=== PATIENT | female | born 1965 | race Caucasian/White ===

== ENCOUNTER 2020-06-13 09:30 | Outpatient (CLI) | payer OTHER, SELFPAY | END 2020-06-13 09:31 | disposition home or self-care (01) | LOC: LAB 04-26 15:01 | PROVIDERS: Family Provider Nurse Practitioner Family; PCP Nurse Practitioner Family; Visit Provider Nurse Practitioner Family | DX: R10.9 Unspecified abdominal pain (principal); R10.12 Left upper quadrant pain; R10.32 Left lower quadrant pain; R10.819 Abdominal tenderness, unspecified site | CPT/HCPCS: 80053; 81000; 85025 ==

== ENCOUNTER 2021-05-06 22:46 | Observation (INO) | payer OTHER, SELFPAY ==
--- NOTE | 2021-05-06 22:48 | ECG_ITS ---
[facility] Test Date: 2021-05-06 Pat Name: Xin Roberts Department: Room: Gender: Female Examination Grader: : 1965 Requested By: Donato Sneed Order Number: [id number] Krystal MD: Alexandru Harden M.D. Measurements Intervals [place] Rate: 143 P: MT: QRS: 61 QRSD: 69 T: 53 QT: 289 QTc: 447 Interpretive Statements SUPRAVENTRICULAR TACHYCARDIA No previous ECG available for comparison Electronically Signed On 05-07-2021 9:00:10 CDT by Alexandru Harden M.D. [id number]
[2021-05-06 22:49] VITALS: BP 159/99; PULSE 143; RESP 14; TEMP 36.8; O2SAT 92; BMI 32.3
--- NOTE | 2021-05-06 22:54 | ED_ITS ---
Documented by User: URBAN Hussein 05/07/21 02:27 HPI - Arrhythmia/Palpitations General: Chief Complaint: Chest Pain Stated Complaint: HEADACHE/CHEST DISCOMFORT Time Seen by Provider: 05/06/21 22:54 History of Present Illness: 56-year-old female comes in today with headache and elevated heart rate. Patient has a history of SVT and takes 50 mg of metoprolol daily. Patient reports that had a busy day raising money for [facility] and she had just taken some livestock back but they had borrowed for their event. Patient then started having a headache. Patient appears nontoxic. Patient appears in mild pain. Patient reports some nausea but no significant chest discomfort. EMS did not treat with any medication and noted a elevated heart rate in the 130s to 140s on their monitor. MD complaint: rapid heart beat Onset (ago): hour(s) Arrhythmia history: SVT Associated symptoms: Reports nausea; Deny vomiting Review of Systems General: Reports: 10 or more systems reviewed and unremarkable except in HPI and below Const: Denies: fever(s) Card: Denies: chest pain Resp: Denies: dyspnea GI: Reports: nausea; Denies: vomiting or diarrhea : Denies: difficulty voiding Neuro: Reports: headache(s) PFS ED PFSH: Family History Father Hypertension Social History Smoking and tobacco status: never smoked Second hand smoke exposure: No Smoking risk assessment/counseling performed?: No Alcohol intake: never Desire information about alcohol rehabilitation?: No Counseling given: No Desire information about substance/drug rehabilitation?: No Counseling given: No Adopted: No Caregiver/support person: No Lives independently: Yes Household members: spouse Housing: House Marital status: Number of children: 3 Highest education level completed: Some College, No Degree service: No Current occupational status: unemployed History of recent travel: No Physical Exam Const: COMMON NORMALS: alert HENMT: COMMON NORMALS: normocephalic HEAD & SCALP: normocephalic MOUTH: Normal oral and palatal mucosa present THROAT: posterior oropharynx normal Neck/C-Spine: COMMON NORMALS: full ROM and supple Chest: COMMONS NORMALS: normal inspection of the chest Resp: COMMON NORMALS: normal respiratory effort and No use of accessory muscles Cardio: COMMON NORMALS: regular rhythm JUGULAR VENOUS DISTENTION: no JVD RATE: tachycardic RHYTHM: regular rhythm GI: COMMON NORMALS: Soft to palpation AUSCULTATION: Yes normoactive bowel sounds PALPATION: Yes Soft to palpation and No Tenderness to palpation present (GI) Extremity: COMMON NORMALS: no pedal edema Neuro: SENSORIUM/ORIENTATION: Yes alert Psych: COMMON NORMALS: cooperative Skin: COMMON NORMALS: no rashes or lesions noted GENERAL SKIN EXAM: no rashes or lesions noted Course ED course: 2349, patient's heart rate continues to be in the 130s to 140s without any significant change. Patient has been given 5 mg of metoprolol and 500 cc of saline with no improvement in heart rate. I reviewed this with Dr. Ivory he recommended may be a trial of diltiazem. I ordered 0.25 mg/kg of diltiazem and a one-time dose of 20 mg IV push. 0010, patient converted to a sinus rhythm with a regular rate in the 70s after administration of Cardizem. Laboratory values and CT were negative. We will monitor patient repeat troponin at the 2-hour kaitlin. Patient agreed to plan. 0200, troponin did show a bump from 32-64. EKG showed no ischemic changes. Reviewed this with Dr. Ivory he recommended we do shared decision making with the family. I reviewed this with patient she continues to have some mild chest discomfort but feels somewhat better. After this discussion I decided that we should go ahead and do a 6-hour troponin and then consider disposition after that. I discussed this again with Dr. Ivory who agreed to plan. Patient will be given some morphine 4 mg IV push and Zofran to help with her complaints of headache and chest discomfort. Vital Signs: Vital signs: Vital Signs Temperature 98.1 F 05/07/21 01:59 Pulse Rate 63 05/07/21 05:18 Respiratory Rate 16 05/07/21 05:18 Blood Pressure 107/59 05/07/21 05:18 Pulse Oximetry 92 05/07/21 05:18 MDM - Arrhythmia/Palpitations Medical Decision Making 56[facility] of [facility] pain, headache, and rapid heart rate. On exam patient had SVT with a rate of 150 on the EKG. Lungs are clear to auscultation. No edema was noted in the extremities. Differential diagnosis includes not limited to SVT, ACS, anxiety. Patient was converted with 20 mg of diltiazem. CBC and CMP were unremarkable. Magnesium and TSH were nor mal. Patient did have some elevation in her troponin. And will be monitored to the 6-hour kaitlin. Dr. Ivory is going to assume care of patient at 3:00 and monitor patient until repeat troponin. Lab Data : 05/06/21 23:10 05/06/21 23:10 Radiology Impressions Chest X-Ray 05/06/21 22:55 IMPRESSION: Mild cardiomegaly. Minimal atelectasis or scar in the left lung base. Other findings detailed above. Head CT 05/06/21:55 IMPRESSION: No acute findings. Slight chronic ischemic changes. Laboratory Results WBC 10.5 10^3/uL (4.0-10.0) H 05/06/21 23:10 RBC 5.00 10^6/uL (4.1-5.3) 05/06/21 23:10 Hgb 14.5 g/dL (11.5-15.3) 05/06/21 23:10 Hct 43.8 % (37.0-47.0) 05/06/21 23:10 MCV 87.6 fl (81-99) 05/06/21 23:10 MCH 29.0 pg (28.0-34.0) 05/06/21 23:10 MCHC 33.1 g/dL (30.0-36.0) 05/06/21 23:10 RDW 11.8 % (12.1-15.1) L 05/06/21 23:10 Plt Count 214 10^3/cmm (130-400) 05/06/21 23:10 MPV 10.1 fL (7.4-10.4) 05/06/21 23:10 Neut % (Auto) 56.2 % 05/06/21 23:10 Lymph % (Auto) 32.9 % 05/06/21 23:10 Pershing % (Auto) 9.3 % 05/06/21 23:10 Eos % (Auto) 0.8 % 05/06/21 23:10 Baso % (Auto) 0.5 % 05/06/21 23:10 Neut # (Auto) 5.91 10^3/uL (1.8-7.7) 05/06/21 23:10 Lymph # (Auto) 3.5 10^3/uL (0.8-4.8) 05/06/21 23:10 Pershing # (Auto) 1.0 10^3/uL (0.2-0.9) H 05/06/21 23:10 Eos # (Auto) 0.1 10^3/uL (0.0-0.8) 05/06/21 23:10 Baso # (Auto) 0.1 10^3/uL (0.0-0.1) 05/06/21 23:10 Nucleated RBC % (auto) 0 % 05/06/21 23:10 Nucleated RBCs # 0.0 /100WBC 05/06/21 23:10 Sodium 140 mmol/L (136-145) 05/06/21 23:10 Potassium 3.9 mmol/L (3.5-5.1) 05/06/21 23:10 Chloride 105 mmol/L (98-107) 05/06/21 23:10 Carbon Dioxide 21 mmol/L (22-29) L 05/06/21 23:10 Anion Gap 17.9 (5-19) 05/06/21 23:10 BUN 15 mg/dL (6-20) 05/06/21 23:10 Creatinine 0.6 mg/dL (0.5-0.9) 05/06/21 23:10 GFR Calculation 103.4 mL/min (90-130) 05/06/21 23:10 Glucose 119 mg/dL (65-115) H 05/06/21 23:10 Calculated Osmolality 292 mOsm/kg (285-295) 05/06/21 23:10 Calcium 9.1 mg/dL (8.5-10.5) 05/06/21 23:10 Magnesium 2.1 mg/dL (1.7-2.3) 05/06/21 23:10 Total Bilirubin 0.4 mg/dL (0.15-1.2) 05/06/21 23:10 AST 26 U/L (0-32) 05/06/21 23:10 ALT 29 U/L (0-33) 05/06/21 23:10 Alkaline Phosphatase 89 IU/L (35-105) 05/06/21 23:10 Troponin T Baseline 32 ng/L (0-10) H 05/06/21 23:10 Troponin T 120 Minute 63.75 ng/L (0-10) H 05/07/21 01:10 Delta Troponin T 31.75 ABS# (0-10) H* 05/07/21 01:10 Troponin T Hi Sens 6Hr 80.75 ng/L (0-10) H 05/07/21 05:10 Troponin T Hi Sens 6Hr Delta 48.75 ng/L (0-12) H* 05/07/21 05:10 Total Protein 7.4 g/dL (6.6-8.7) 05/06/21 23:10 Albumin 4.3 g/dL (3.5-5.2) 05/06/21 23:10 Globulin 3.1 g/dL (1.3-4.6) 05/06/21 23:10 TSH 1.22 uIU/mL (0.27-4.20) 05/06/21 23:10 Urine Color Yellow (Yellow) 05/06/21 23:25 Urine Appearance Clear (CLEAR) 05/06/21 23:25 Urine pH 7 (5-7) 05/06/21 23:25 Ur Specific [place] 1.010 (1.005-1.030) 05/06/21 23:25 Urine Protein Neg (Negative) 05/06/21 23:25 Urine Glucose (UA) Norm (Normal) 05/06/21 23:25 Urine Ketones 1+ (Negative) H 05/06/21 23:25 Urine Blood Neg (Negative) 05/06/21 23:25 Urine Nitrate Negative (Negative) 05/06/21 23:25 Urine Bilirubin Neg (Negative) 05/06/21 23:25 Urine Urobilinogen Norm mg/dL (Negative) 05/06/21 23:25 Ur Leukocyte Esterase Trace (Negative) H 05/06/21 23:25 Urine RBC 0-4 /hpf (0-2) H 05/06/21 23:25 Urine WBC 0-4 /hpf (0-5) H 05/06/21 23:25 Ur Squamous Epith Cells 5-10 /hpf (0-5) H 05/06/21 23:25 Amorphous Sediment Not Reportable 05/06/21 23:25 Urine Bacteria 1+ /hpf (NONE) H 05/06/21 23:25 Urine Mucus 2+ /hpf 05/06/21 23:25 EKG Data EKG 1: EKG interpretation date: 05/06/21 EKG interpretation time: 22:55 Interpretation: EKG shows a regular tachycardic rhythm at [address] elevation or ectopy is noted. Computer reads as a supraventricular tachycardia. Other EKG comments: Chest X-Ray 05/06/21 22:55 IMPRESSION: Mild cardiomegaly. Minimal atelectasis or scar in the left lung base. Other findings detailed above. Head CT 05/06/21 22:55 IMPRESSION: No acute findings. Slight chronic ischemic changes. Discharge Plan Discharge Patient Disposition: Placed in Observation Clinical Impression: SVT (supraventricular tachycardia) Chest pain Qualifiers: Chest pain type: unspecified Qualified Code(s): R07.9 - Chest pain, unspecified Coding Level of Care Code ED Telephone Installer for Chg Fwd Exam Comprehensive Documented by User: Donato Ivory DO 05/07/21 06:38 HPI - Arrhythmia/Palpitations General: Chief Complaint: Chest Pain Stated Complaint: HEADACHE/CHEST DISCOMFORT Time Seen by Provider: 05/06/21 22:54 PFSH ED PFSH: Family History Father Hypertension Social History Smoking and tobacco status: never smoked Second hand smoke exposure: No Smoking risk assessment/counseling performed?: No Alcohol intake: never Desire information about alcohol rehabilitation?: No Counseling given: No Desire information about substance/drug rehabilitation?: No Counseling given: No Adopted: No Caregiver/support person: No Lives independently: Yes Household members: spouse Housing: House Marital status: Number of children: 3 Highest education level completed: Some College, No Degree service: No Current occupational status: unemployed History of recent travel: No Course Vital Signs: Vital signs: Vital Signs Temperature 98.1 F 05/07/21 01:59 Pulse Rate 63 05/07/21 05:18 Respiratory Rate 16 05/07/21 05:18 Blood Pressure 107/59 05/07/21 05:18 Pulse Oximetry 92 05/07/21 05:18 MDM - Arrhythmia/Palpitations Medical Decision Making 56[facility] of [facility] pain, headache, and rapid heart rate. On exam patient had SVT with a rate of 150 on the EKG. Lungs are clear to auscultation. No edema was noted in the extremities. Differential diagnosis includes not limited to SVT, ACS, anxiety. Patient was converted with 20 mg of diltiazem. CBC and CMP were unremarkable. Magnesium and TSH were normal. Patient did have some elevation in her troponin. And will be monitored to the 6-hour kaitlin. Dr. Ivory is going to assume care of patient at 3:00 and monitor patient until repeat troponin. This patient was originally seen by URBAN Gamez.? I agree with his history, evaluation, and treatment. I have evaluated the patient as well. 6-hour troponin is up again, with a delta of 48. She has had some chest discomfort on and off despite her heart rate being controlled, sinus at 62 at this point. Blood pressure is 114/70. Saturations are 91%. She will need to be observed given continued elevation of troponin. Lab Data : 05/06/21 23:10 05/06/21 23:10 Radiology Impressions Chest X-Ray 05/06/21 22:55 IMPRESSION: Mild cardiomegaly. Minimal atelectasis or scar in the left lung base. Other findings detailed above. Head CT 05/06/21 22:55 IMPRESSION: No acute findings. Slight chronic ischemic changes. Laboratory Results WBC 10.5 10^3/uL (4.0-10.0) H 05/06/21 23:10 RBC 5.00 10^6/uL (4.1-5.3) 05/06/21 23:10 Hgb 14.5 g/dL (11.5-15.3) 05/06/21 23:10 Hct 43.8 % (37.0-47.0) 05/06/21 23:10 MCV 87.6 fl (81-99) 05/06/21 23:10 MCH 29.0 pg (28.0-34.0) 05/06/21 23:10 MCHC 33.1 g/dL (30.0-36.0) 05/06/21 23:10 RDW 11.8 % (12.1-15.1) L 05/06/21 23:10 Plt Count 214 10^3/cmm (130-400) 05/06/21 23:10 MPV 10.1 fL (7.4-10.4) 05/06/21 23:10 Neut % (Auto) 56.2 % 05/06/21 23:10 Lymph % (Auto) 32.9 % 05/06/21 23:10 Pershing % (Auto) 9.3 % 05/06/21 23:10 Eos % (Auto) 0.8 % 05/06/21 23:10 Baso % (Auto) 0.5 % 05/06/21 23:10 Neut # (Auto) 5.91 10^3/uL (1.8-7.7) 05/06/21 23:10 Lymph # (Auto) 3.5 10^3/uL (0.8-4.8) 05/06/21 23:10 Pershing # (Auto) 1.0 10^3/uL (0.2-0.9) H 05/06/21 23:10 Eos # (Auto) 0.1 10^3/uL (0.0-0.8) 05/06/21 23:10 Baso # (Auto) 0.1 10^3/uL (0.0-0.1) 05/06/21 23:10 Nucleated RBC % (auto) 0 % 05/06/21 23:10 Nucleated RBCs # 0.0 /100WBC 05/06/21 23:10 Sodium 140 mmol/L (136-145) 05/06/21 23:10 Potassium 3.9 mmol/L (3.5-5.1) 05/06/21 23:10 Chloride 105 mmol/L (98-107) 05/06/21 23:10 Carbon Dioxide 21 mmol/L (22-29) L 05/06/21 23:10 Anion Gap 17.9 (5-19) 05/06/21 23:10 BUN 15 mg/dL (6-20) 05/06/21 23:10 Creatinine 0.6 mg/dL (0.5-0.9) 05/06/21 23:10 GFR Calculation 103.4 mL/min (90-130) 05/06/21 23:10 Glucose 119 mg/dL (65-115) H 05/06/21 23:10 Calculated Osmolality 292 mOsm/kg (285-295) 05/06/21 23:10 Calcium 9.1 mg/dL (8.5-10.5) 05/06/21 23:10 Magnesium 2.1 mg/dL (1.7-2.3) 05/06/21 23:10 Total Bilirubin 0.4 mg/dL (0.15-1.2) 05/06/21 23:10 AST 26 U/L (0-32) 05/06/21 23:10 ALT 29 U/L (0-33) 05/06/21 23:10 Alkaline Phosphatase 89 IU/L (35-105) 05/06/21 23:10 Troponin T Baseline 32 ng/L (0-10) H 05/06/21 23:10 Troponin T 120 Minute 63.75 ng/L (0-10) H 05/07/21 01:10 Delta Troponin T 31.75 ABS# (0-10) H* 05/07/21 01:10 Troponin T Hi Sens 6Hr 80.75 ng/L (0-10) H 05/07/21 05:10 Troponin T Hi Sens 6Hr Delta 48.75 ng/L (0-12) H* 05/07/21 05:10 Total Protein 7.4 g/dL (6.6-8.7) 05/06/21 23:10 Albumin 4.3 g/dL (3.5-5.2) 05/06/21 23:10 Globulin 3.1 g/dL (1.3-4.6) 05/06/21 23:10 TSH 1.22 uIU/mL (0.27-4.20) 05/06/21 23:10 Urine Color Yellow (Yellow) 05/06/21 23:25 Urine Appearance Clear (CLEAR) 05/06/21 23:25 Urine pH 7 (5-7) 05/06/21 23:25 Ur Specific [place] 1.010 (1.005-1.030) 05/06/21 23:25 Urine Protein Neg (Negative) 05/06/21 23:25 Urine Glucose (UA) Norm (Normal) 05/06/21 23:25 Urine Ketones 1+ (Negative) H 05/06/21 23:25 Urine Blood Neg (Negative) 05/06/21 23:25 Urine Nitrate Negative (Negative) 05/06/21 23:25 Urine Bilirubin Neg (Negative) 05/06/21 23:25 Urine Urobilinogen Norm mg/dL (Negative) 05/06/21 23:25 Ur Leukocyte Esterase Trace (Negative) H 05/06/21 23:25 Urine RBC 0-4 /hpf (0-2) H 05/06/21 23:25 Urine WBC 0-4 /hpf (0-5) H 05/06/21 23:25 Ur Squamous Epith Cells 5-10 /hpf (0-5) H 05/06/21 23:25 Amorphous Sediment Not Reportable 05/06/21 23:25 Urine Bacteria 1+ /hpf (NONE) H 05/06/21 23:25 Urine Mucus 2+ /hpf 05/06/21 23:25 EKG Data EKG 1: Other EKG comments: Chest X-Ray 05/06/21 22:55 IMPRESSION: Mild cardiomegaly. Minimal atelectasis or scar in the left lung base. Other findings detailed above. Head CT 05/06/21 22:55 IMPRESSION: No acute findings. Slight chronic ischemic changes. Critical Care Time Critical Care Time: Critical Care Time: Yes Total Critical Care Time: 40 Attestation: This case had a high probability of a clinically significant, sudden, or life threatening deterioration of this patient's condition which required my full and direct attention, intervention and personal management. Time is independent of any procedures performed. Discharge Plan Discharge Patient Disposition: Placed in Observation Clinical Impression: SVT (supraventricular tachycardia) Chest pain Qualifiers: Chest pain type: unspecified Qualified Code(s): R07.9 - Chest pain, unspecified Coding Level of Care Code ED Telephone Installer for [facility] Fwd Exam Comprehensive
--- NOTE | 2021-05-06 22:55 | ECG_ITS ---
[facility] Test Date: 2021-05-09 Pat Name: Xin Roberts Department: Room: 102 Gender: Female Edm Operator: : 1965 Requested By: Ghanshyam Pereyra Order Number: [id number] Krystal MD: Cecilio Walker M.D. Measurements Intervals [place] Rate: 57 P: 29 MD: 147 QRS: -9 QRSD: 84 T: 31 QT: 417 QTc: 406 Interpretive Statements SINUS BRADYCARDIA NONSPECIFIC T-WAVE ABNORMALITY Compared to ECG 05/07/2021 04:46:05 T-wave abnormality now present Sinus rhythm no longer present Electronically Signed On 05-11-2021 10:47:29 CDT by Cecilio Walker M.D. [email or web address] medical [facility].Beepl/store/[id number] f
--- NOTE | 2021-05-06 22:55 | CTR_ITS ---
PROCEDURE INFORMATION: Exam: CT Head Without Contrast Exam date and time: 05/06/2021 11:15 PM Age: 56 years old Clinical indication: Pain; Headache not specified; Patient HX: C/O DEL ROSARIO today TECHNIQUE: Imaging protocol: Computed tomography of the head without contrast. Radiation optimization: All CT scans at this facility use at least one of these dose optimization techniques: automated exposure control; mA and/or kV adjustment per patient size (includes targeted exams where dose is matched to clinical indication); or iterative reconstruction. COMPARISON: No relevant prior studies available. RADIATION DOSE METRICS: Total DLP (mGy-cm): 795.85 FINDINGS: Brain: Slight patchy low density in the cerebral white matter bilaterally consistent with chronic ischemic changes. No edema in the brain. No intracranial hemorrhage. Cerebral ventricles: No ventriculomegaly. Paranasal sinuses: No air-fluid levels or significant mucosal thickening in the visualized paranasal sinuses. Mastoid air cells: No apparent mastoid disease. Bones/joints: Unremarkable. No acute fracture. Soft tissues: No acute finding. CT/CT head wo con* [id number] IMPRESSION: No acute findings. Slight chronic ischemic changes.
--- NOTE | 2021-05-06 22:55 | XRR_ITS ---
PROCEDURE INFORMATION: Exam: XR Chest Exam date and time: 05/06/2021 11:31 PM Age: 56 years old Clinical indication: Pain; Chest pressure TECHNIQUE: Imaging protocol: XR of the chest. Views: 1 view. COMPARISON: No relevant prior studies available. FINDINGS: Limitations: Clothing artifacts and other extrinsic overlying structures. Lungs: Minimal atelectasis or scar in the left lower lateral lung base. Slightly prominent lung volumes. No consolidation. Pleural spaces: No pneumothorax or apparent pleural fluid. Heart/Mediastinum: Mild cardiomegaly. Vasculature: Slight aortic elongation. Bones/joints: No suggestion of acute bony disease. Spurring at several disc levels. XR/XR chest 1V portable [id number] IMPRESSION: Mild cardiomegaly. Minimal atelectasis or scar in the left lung base. Other findings detailed above.
[2021-05-06] MEDS: metoprolol tartrate 1 mg/1 mL SDV 5 mL 5 MG IVP (22:58)
[2021-05-06 23:15] LABS: Basophils # 0.1 10^3/uL (0.0-0.1); Basophils % 0.5 %; Eosinophils # 0.1 10^3/uL (0.0-0.8); Eosinophils % 0.8 %; Hematocrit 43.8 % (37.0-47.0); Hemoglobin 14.5 g/dL (11.5-15.3); Lymphocytes # 3.5 10^3/uL (0.8-4.8); Lymphocytes % 32.9 %; Mean Corpuscular HGB Conc 33.1 g/dL (30.0-36.0); Mean Corpuscular Volume 87.6 fl (81-99); Mean Platelet Volume 10.1 fL (7.4-10.4); Monocytes % 9.3 %; Neutrophils # 5.91 10^3/uL (1.8-7.7); Neutrophils % 56.2 %; Nucleated Red Blood Cells % 0 %; Platelet Count 214 10^3/cmm (130-400); Red Cell Distribution Width 11.8 % (12.1-15.1); White Blood Count 10.5 10^3/uL (4.0-10.0)
[2021-05-06 23:36] LABS: Troponin(5th) Baseline 32 ng/L (0-10)
[2021-05-06 23:50] LABS: Add Urine Microscopic? YES; Bilirubin Urine Neg (Negative); Blood Urine Neg (Negative); Glucose Urine UA Norm (Normal); Ketones Urine 1+ (Negative); Leukocyte Esterase Urine Trace (Negative); Nitrate Urine Negative (Negative); Protein Urine Neg (Negative); Urine Appearance Clear (CLEAR); Urine Color Yellow (Yellow); Urobilinogen Urine Norm (Negative); pH Urine 7 (5-7)
[2021-05-06 23:51] LABS: Alanine Aminotransferase 29 U/L (0-33); Albumin Level 4.3 g/dL (3.5-5.2); Alkaline Phosphatase 89 IU/L (35-105); Anion Gap 17.9 (5-19); Aspartate Amino Transferase 26 U/L (0-32); Blood Urea Nitrogen 15 mg/dL (6-20); Calcium 9.1 mg/dL (8.5-10.5); Carbon Dioxide 21 mmol/L (22-29); Chloride 105 mmol/L (98-107); Creatinine Clr Calc Pharmacy 118.7805; Globulin 3.1 g/dL (1.3-4.6); Glomerular Filtration Rate 103.4 mL/min (90-130); Glucose 119 mg/dL (65-115); Osmolality Calculated 292 mOsm/kg (285-295); Potassium 3.9 mmol/L (3.5-5.1); Sodium 140 mmol/L (136-145); Total Bilirubin 0.4 mg/dL (0.15-1.2); Total Protein 7.4 g/dL (6.6-8.7)
[2021-05-06 23:51] LABS: Add Urine Culture? No; Bacteria Urine 1+ /hpf; Mucus Urine 2+ /hpf; RBC Urine 0-4 /hpf (0-2); WBC Urine 0-4 /hpf (0-5)
[2021-05-06] MEDS: sodium chloride 0.9% 500 ML 999 ML IV (23:51)
[2021-05-07] VITALS (16 sets, daily range): BP systolic 102–137; BP diastolic 50–81; PULSE 62–87; RESP 8–18; TEMP 36.4–36.7; O2SAT 92–100
[2021-05-07 00:04] LABS: Magnesium 2.1 mg/dL (1.7-2.3); Thyroid Stimulating Hormone 1.22 uIU/mL (0.27-4.20)
--- NOTE | 2021-05-07 00:55 | ECG_ITS ---
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 Measurements Intervals [place] Rate: 69 P: 67 [place]: 212 QRS: 72 QRSD: 89 T: 64 QT: 390 QTc: 421 Interpretive Statements SINUS RHYTHM WITH FIRST DEGREE AV BLOCK Compared to ECG 05/06/2021 22:51:18 First degree AV block now present Supraventricular tachycardia no longer present Electronically Signed On 05-07-2021 9:04:12 CDT by Alexandru Harden M.D. [id number]
[2021-05-07 01:51] LABS: Troponin 5 2HR 63.75 ng/L (0-10)
[2021-05-07 02:09] LABS: Troponin 5 2HR Delta 31.75 ABS# (0-10)
--- NOTE | 2021-05-07 02:20 | PC.NURSE ---
Critical lab result: 2hr Troponin 63.75, Delta 31.75 Reported to Almas Howell NP.
[2021-05-07] MEDS: morphine 4 mg/mL SDV 1 mL IVP (02:34)
[2021-05-07] MEDS: ondansetron 2 mg/ML SDV 2 mL 4 MG IVP (02:34)
--- NOTE | 2021-05-07 04:55 | ECG_ITS ---
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 Measurements Intervals [place] Rate: 64 P: 62 [place]: 201 QRS: 74 QRSD: 88 T: 46 QT: 426 QTc: 440 Interpretive Statements SINUS RHYTHM Compared to ECG 05/07/2021 01:01:14 First degree AV block no longer present Electronically Signed On 05-07-2021 9:03:46 CDT by Alexandru Harden M.D. [email or web address] [email or web address] [employer]/store/OM/[id number]
[2021-05-07 05:51] LABS: Troponin 5 6HR 80.75 ng/L (0-10)
[2021-05-07 06:08] LABS: Troponin 5 6HR Delta 48.75 ng/L (0-12)
--- NOTE | 2021-05-07 06:09 | PC.NURSE ---
Critical lab result: 6hr trop 80.75, delta 48.[address] Ivory.
--- NOTE | 2021-05-07 08:41 | P.HP_ITS ---
Providers/Chief Complaint Primary Care Provider: PATRICK Booker Chief Complaint: HEADACHE/CHEST DISCOMFORT History of Present Illness Xin Roberts is a 56 year old female who presented to the emergency department with complaints of headache, palpitations, severe chest pressure. She reported she felt like she was having a heart attack . She was also short of breath. At the emergency department she was found to be in SVT with a heart rate in the 140s. She was placed on some IV Cardizem, given some metoprolol, and subsequently converted. Currently reports she feels much better. She denies any chest discomfort currently. She reports she recently had some chest discomfort without palpitations, when walking up a hill that was described as chest pressure. She had another episode at rest. A week or so prior. Earlier this month she did have an esophageal dilation for esophageal stenosis secondary to reflux. This went well and she had no chest discomfort in the days and week following the procedure. She does not take statin secondary to hyperlipidemia. She has not had any recent fever, cough, cold symptoms. She reports she saw a csr technician several years ago, and had nuclear stress testing at that time. No particular concerns at that time. Review of Systems General: Reports: 10 or more systems reviewed and unremarkable except in HPI and below Const: Denies: fever(s) or chills Eyes: Denies: change in vision ENMT: Denies: throat pain Card: Reports: chest pain, palpitations, irregular heart rhythm and dyspnea on exertion Resp: Reports: dyspnea; Denies: productive cough GI: Denies: nausea, vomiting, hematochezia or melena : Denies: flank pain Musc: Denies: neck pain Skin/Breast: Denies: rash Neuro: Reports: headache(s) Psych: Denies: anxiety or depression Endo: Denies: polyuria Wolfgang/Lymph: Denies: easy bruising All/Imm: Denies: urticaria Medications/Allergies Home Medications Medication Instructions Recorded Confirmed Last Taken Type Vitamin B-12 1 tab PO DAILY 05/07/21 05/07/21 Unknown History Vitamin B-6 1 tab PO DAILY 05/07/21 05/07/21 Unknown History Vitamin D3 1 cap PO DAILY 05/07/21 05/07/21 Unknown History albuterol sulfate 90 mcg/actuation 2 puff INHALATION Q6H PRN 05/07/21 05/07/21 Unknown History aerosol inhaler aspirin 81 mg tablet,delayed 81 mg PO BEDTIME 05/07/21 05/07/21 Unknown History release famotidine 20 mg tablet 40 mg PO BEDTIME 05/07/21 05/07/21 Unknown History metoprolol succinate 50 mg 50 mg PO BEDTIME 05/07/21 05/07/21 Unknown History tablet,extended release 24 hr nystatin 100,000 unit/mL oral 5 ml PO QID 05/07/21 05/07/21 04/30/21 History suspension not taken for a week omeprazole 40 mg capsule,delayed 40 mg PO QAM 05/07/21 05/07/21 Unknown History release vitamin E 1 tab PO DAILY 05/07/21 05/07/21 Unknown History Allergies Allergy/AdvReac Type Severity Reaction Status Date / Time cetirizine [From Zyrtec] Allergy Unknown Verified 05/06/21 22:56 meloxicam [From Mobic] Allergy Unknown Verified 05/07/21 08:43 NSAIDS (Non-Steroidal Allergy Unknown Verified 05/06/21 22:56 Anti-Inflamma [id number] Reductase Allergy ALGY-Joint Verified 05/07/21 08:43 Inhibitor Pain PFSH Acute PFSH: Medical History (Updated 05/07/21 @ 11:14 by Mohinder Parham MD) Allergic rhinitis Asthma Benign essential HTN Colon polyp Diet-controlled diabetes mellitus DJD (degenerative joint disease) Dyslipidemia GERD (gastroesophageal reflux disease) History of esophageal dilatation Hypertension Statin intolerance SVT (supraventricular tachycardia) Surgical History Hx of section Hx of hysterectomy, total Family History (Updated 05/07/21 @ 11:06 by Mohinder Parham MD) Father Hypertension Other Cancer Social History Smoking and tobacco status: never smoked Second hand smoke exposure: No Smoking risk assessment/counseling performed?: No Alcohol intake: never Desire information about alcohol rehabilitation?: No Counseling given: No Desire information about substance/drug rehabilitation?: No Counseling given: No Adopted: No Caregiver/support person: No Lives independently: Yes Household members: spouse Housing: House Marital status: Number of children: 3 Highest education level completed: Some College, No Degree service: No Current occupational status: unemployed History of recent travel: No Vitals/I&O/Wt Last Vital Signs Temp 98.1 F 05/07/21 01:59 Pulse 72 05/07/21 07:35 Resp 16 05/07/21 07:35 BP 102/50 05/07/21 07:35 Pulse Ox 94 05/07/21 07:35 05/06/21 05/07/21 05/07/21 22:59 06:59 14:59 Intake Total 500 / 500 Balance 500 / 500 Weight last 48 hrs Weight 90.718 kg Physical Exam Narrative: General exam no distress. Denies any chest discomfort currently HEENT: Pupils equally round. Oropharynx clear. Neck is supple no lymphadenopathy thyromegaly Cardiovascular regular rate and rhythm without murmur, no S3 or S4 Lungs are clear to auscultation bilaterally. No wheezing or crackles Abdomen is soft nontender positive bowel sounds. No obvious organomegaly exam is deferred Extremities no cyanosis clubbing or edema, cap refill brisk Skin no rash Neuro no focal deficits. Data : 05/06/21 23:10 05/06/21 23:10 Other Labs: EKG demonstrates normal sinus rhythm, normal axis, no acute changes. Initial troponin 32, repeat 63, 6-hour 80 LFTs normal Urinalysis 0-4 reds, 0-[address] shows no acute findings Chest x-ray no infiltrate, mild cardiomegaly TSH is done and normal A&P Assessment and plan (1) SVT (supraventricular tachycardia): Patient presented with SVT, and has subsequently converted after metoprolol IV and Cardizem IV. Continue diltiazem 30 mg p.o. every 8 hours Check echocardiogram Cardiology consultation She presented with history of diminished intake lately, raising concern for mild dehydration. Fluids will be continued. Magnesium was checked and normal Status: Acute (2) Chest discomfort: Elevated troponin consistent with non-ST elevation myocardial infarction Check echocardiogram Aspirin, full dose anticoagulation Hold off on statin that she is intolerant of this. Check lipid profile in the morning Cardiology consultation. Possible stress test versus angiogram. Status: Acute (3) Benign essential HTN: Continue diltiazem, short acting currently Status: Acute (4) Dyslipidemia: Check lipid profile in the morning TSH was checked and normal Status: Acute (5) GERD (gastroesophageal reflux disease): Continue Protonix 40 mg twice daily Status: Acute Plan Headache on presentation, resolved. CT head negative. 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
--- NOTE | 2021-05-07 09:08 | PM.CONSULT ---
Providers/Reason For Consult Consulting Physician/Specialty*: NUBIA Walker MD/cardiology Reason for Consult*: Patient with SVT/chest pain/elevated troponin T Requesting Physician: Dr Mohinder Parham Attending Physician: Dr. Mohinder Parham Primary Care Provider: PATRICK Booker History of Present Illness History of Present Illness Xin Roberts is a 56 year old female presented to the emergency room with complaints of chest discomfort, headache and a fast heartbeat. She was found to be in SVT and with a heart rate in the 140s. She was started on IV Cardizem. Her rhythm returned to normal sinus. She had this episode lasting for several hours prior to this. Currently she is back to normal heart rate in the 60s. She was found to have elevated troponin T. Cardiology consult is requested for further cardiac evaluation recommendations. Patient is known to have some form of irregular heartbeat for the last 20 years or so. She was seen by a business process associate at that time and was placed on metoprolol. She has been taking metoprolol all these years. Approximately 2 years ago she was seen by a business process associate in [place]. She was having chest discomfort and palpitation at that time. She had an echocardiogram and a stress test which were unremarkable, as per the patient. She is currently on metoprolol 50 mg p.o. twice daily. A week ago, patient had a similar symptoms. She described as a pressure-like feeling all across the chest, associate with some weakness. She went to bed with this symptom at that time. In the morning she was feeling fine. She has not had any significant symptoms since then up until last evening. He has occasional episodes of twinges of pain on the chest, lasting for few seconds and then goes away by itself. She has a history of high blood pressure, dyslipidemia and diet-controlled diabetes. She could not tolerate any statins because of the myalgias/arthralgias. She is on dietary modification. She also is known to have esophageal spasm/stenosis. She had dilatation of the esophagus in the past. She is still having difficulty in swallowing intermittently. Denies any documented history for coronary disease, myocardial infarction or congestive heart failure. Review of Systems Narrative: CONSTITUTIONAL: No fever or chills. EYES: No blurring of vision or other visual disturbances lately. ENT: No hoarseness of voice, auditory disturbances or sore throat. CARDIOVASCULAR: As mentioned above. RESPIRATORY: No significant cough. GASTROINTESTINAL: No hematemesis or melena. 3 of polypectomy. GENITOURINARY: C-sections and hysterectomy INTEGUMENTARY: No skin rashes or history of skin cancer. NEURO: No transient ischemic attacks or amaurosis. History of chronic headache PSYCHIATRIC: No history of psychosis or major depression. HEMATOLOGIC: No bleeding disorders or significant anemia. ENDOCRINE: No history of polyuria or polydipsia. Uncontrolled diabetes MUSCULOSKELETAL: No recent joint pain or swelling. Tightness of the back in the hip ALLERGY/IMMUNOLOGY: As mentioned above. A lot of nasal allergies Medications/Allergies Home Medications Medication Instructions Recorded Confirmed Last Taken Type Vitamin B-12 1 tab PO DAILY 05/07/21 05/07/21 Unknown History Vitamin B-6 1 tab PO DAILY 05/07/21 05/07/21 Unknown History Vitamin D3 1 cap PO DAILY 05/07/21 05/07/21 Unknown History albuterol sulfate 90 mcg/actuation 2 puff INHALATION Q6H PRN 05/07/21 05/07/21 Unknown History aerosol inhaler aspirin 81 mg tablet,delayed 81 mg PO BEDTIME 05/07/21 05/07/21 Unknown History release famotidine 20 mg tablet 40 mg PO BEDTIME 05/07/21 05/07/21 Unknown History metoprolol succinate 50 mg 50 mg PO BEDTIME 05/07/21 05/07/21 Unknown History tablet,extended release 24 hr nystatin 100,000 unit/mL oral 5 ml PO QID 05/07/21 05/07/21 04/30/21 History suspension not taken for a week omeprazole 40 mg capsule,delayed 40 mg PO QAM 05/07/21 05/07/21 Unknown History release vitamin E 1 tab PO DAILY 05/07/21 05/07/21 Unknown History Allergies Allergy/AdvReac Type Severity Reaction Status Date / Time cetirizine [From Zyrtec] Allergy Unknown Verified 05/06/21 22:56 meloxicam [From Mobic] Allergy Unknown Verified 05/07/21 08:43 NSAIDS (Non-Steroidal Allergy Unknown Verified 05/06/21 22:56 Anti-Inflamma Zuosjur-[id number]-McU Reductase Allergy ALGY-Joint Verified 05/07/21 08:43 Inhibitor Pain PFSH Acute PFSH: Medical History Allergic rhinitis Asthma Benign essential HTN Colon polyp Diet-controlled diabetes mellitus DJD (degenerative joint disease) Dyslipidemia GERD (gastroesophageal reflux disease) History of esophageal dilatation Hypertension Statin intolerance SVT (supraventricular tachycardia) Surgical History Hx of section Hx of hysterectomy, total Family History Father Hypertension Other Cancer Social History Smoking and tobacco status: never smoked Second hand smoke exposure: No Smoking risk assessment/counseling performed?: No Alcohol intake: never Desire information about alcohol rehabilitation?: No Counseling given: No Desire information about substance/drug rehabilitation?: No Counseling given: No Adopted: No Caregiver/support person: No Lives independently: Yes Household members: spouse Housing: House Marital status: Number of children: 3 Highest education level completed: Some College, No Degree service: No Current occupational status: unemployed History of recent travel: No Vitals/I&O/Wt Last Vital Signs Temp 98.1 F 05/07/21 01:59 Pulse 72 05/07/21 07:35 Resp 16 05/07/21 07:35 BP 102/50 05/07/21 07:35 Pulse Ox 94 05/07/21 07:35 05/06/21 05/07/21 05/07/21 22:59 06:59 14:59 Intake Total 500 / 500 Balance 500 / 500 Weight last 48 hrs Weight 200 lb Physical Exam Narrative: GENERAL: The patient is alert and oriented times three. Not in any acute distress. Overweight HEENT: No significant pallor, icterus or lymphadenopathy. The pupils are reactant to light. Oral cavity: There are no mucous membrane lesions. Funduscopic examination: Fundus is not visualized NECK: Trachea appears to be central. No masses noted. No JVD or thyromegaly appreciated. No carotid bruit. RESPIRATORY: Chest is symmetrical. No intercostals muscle retraction or any accessory muscle activation. There is no chest wall tenderness. Breath sounds are heard bilaterally. No rales or rhonchi heard. No evidence of any consolidation. BREASTS: Deferred. HEART: No palpable precordial events. S1 and S2 are normal. No S3 or S4 heard. No pericardial rub or any click heard. ABDOMEN: No vessel pulsations or distention. No tenderness. No organomegaly appreciated. No abdominal bruit. Bowel sounds are normally heard. : Deferred. RECTAL: Deferred. LYMPHATIC: No lymphadenopathy noted in the neck or groin. EXTREMITIES: No edema or cyanosis. No clubbing. The pulses are symmetrical bilaterally. The radial, femoral, dorsalis pedis and the posterior tibial pulses are palpated and found to be in good volume and amplitude. MUSCULOSKELETAL: No acute joint deformities or swelling SKIN: There are no significant scars or skin rash noted. NEUROPSYCHIATRIC: The patient is alert and oriented x3. Appears to be in a good mood. The higher functions are grossly within normal limits. No tremors or rigidity noted. Data : 05/07/21 12:12 05/07/21 12:12 Other Labs: Laboratory Last Values WBC 10.5 10^3/uL (4.0-10.0) H 05/06/21 23:10 RBC 5.00 10^6/uL (4.1-5.3) 05/06/21 23:10 Hgb 14.5 g/dL (11.5-15.3) 05/06/21 23:10 Hct 43.8 % (37.0-47.0) 05/06/21 23:10 MCV 87.6 fl (81-99) 05/06/21 23:10 MCH 29.0 pg (28.0-34.0) 05/06/21 23:10 MCHC 33.1 g/dL (30.0-36.0) 05/06/21 23:10 RDW 11.8 % (12.1-15.1) L 05/06/21 23:10 Plt Count 214 10^3/cmm (130-400) 05/06/21 23:10 MPV 10.1 fL (7.4-10.4) 05/06/21 23:10 Neut % (Auto) 56.2 % 05/06/21 23:10 Lymph % (Auto) 32.9 % 05/06/21 23:10 [place] % (Auto) 9.3 % 05/06/21 23:10 Eos % (Auto) 0.8 % 05/06/21 23:10 Baso % (Auto) 0.5 % 05/06/21 23:10 Neut # (Auto) 5.91 10^3/uL (1.8-7.7) 05/06/21 23:10 Lymph # (Auto) 3.5 10^3/uL (0.8-4.8) 05/06/21 23:10 [place] # (Auto) 1.0 10^3/uL (0.2-0.9) H 05/06/21 23:10 Eos # (Auto) 0.1 10^3/uL (0.0-0.8) 05/06/21 23:10 Baso # (Auto) 0.1 10^3/uL (0.0-0.1) 05/06/21 23:10 Nucleated RBC % (auto) 0 % 05/06/21 23:10 Nucleated RBCs # 0.0 /100WBC 05/06/21 23:10 Sodium 140 mmol/L (136-145) 05/06/21 23:10 Potassium 3.9 mmol/L (3.5-5.1) 05/06/21 23:10 Chloride 105 mmol/L (98-107) 05/06/21 23:10 Carbon Dioxide 21 mmol/L (22-29) L 05/06/21 23:10 Anion Gap 17.9 (5-19) 05/06/21 23:10 BUN 15 mg/dL (6-20) 05/06/21 23:10 Creatinine 0.6 mg/dL (0.5-0.9) 05/06/21 23:10 GFR Calculation 103.4 mL/min (90-130) 05/06/21 23:10 Glucose 119 mg/dL (65-115) H 05/06/21 23:10 Calculated Osmolality 292 mOsm/kg (285-295) 05/06/21 23:10 Calcium 9.1 mg/dL (8.5-10.5) 05/06/21 23:10 Magnesium 2.1 mg/dL (1.7-2.3) 05/06/21 23:10 Total Bilirubin 0.4 mg/dL (0.15-1.2) 05/06/21 23:10 AST 26 U/L (0-32) 05/06/21 23:10 ALT 29 U/L (0-33) 05/06/21 23:10 Alkaline Phosphatase 89 IU/L (35-105) 05/06/21 23:10 Troponin T Baseline 32 ng/L (0-10) H 05/06/21 23:10 Troponin T 120 Minute 63.75 ng/L (0-10) H 05/07/21 01:10 Delta Troponin T 31.75 ABS# (0-10) H* 05/07/21 01:10 Troponin T Hi Sens 6Hr 80.75 ng/L (0-10) H 05/07/21 05:10 Troponin T Hi Sens 6Hr Delta 48.75 ng/L (0-12) H* 05/07/21 05:10 Total Protein 7.4 g/dL (6.6-8.7) 05/06/21 23:10 Albumin 4.3 g/dL (3.5-5.2) 05/06/21 23:10 Globulin 3.1 g/dL (1.3-4.6) 05/06/21 23:10 TSH 1.22 uIU/mL (0.27-4.20) 05/06/21 23:10 Urine Color Yellow (Yellow) 05/06/21 23:25 Urine Appearance Clear (CLEAR) 05/06/21 23:25 Urine pH 7 (5-7) 05/06/21 23:25 Ur Specific Leslie 1.010 (1.005-1.030) 05/06/21 23:25 Urine Protein Neg (Negative) 05/06/21 23:25 Urine Glucose (UA) Norm (Normal) 05/06/21 23:25 Urine Ketones 1+ (Negative) H 05/06/21 23:25 Urine Blood Neg (Negative) 05/06/21 23:25 Urine Nitrate Negative (Negative) 05/06/21 23:25 Urine Bilirubin Neg (Negative) 05/06/21 23:25 Urine Urobilinogen Norm mg/dL (Negative) 05/06/21 23:25 Ur Leukocyte Esterase Trace (Negative) H 05/06/21 23:25 Urine RBC 0-4 /hpf (0-2) H 05/06/21 23:25 Urine WBC 0-4 /hpf (0-5) H 05/06/21 23:25 Ur Squamous Epith Cells 5-10 /hpf (0-5) H 05/06/21 23:25 Amorphous Sediment Not Reportable 05/06/21 23:25 Urine Bacteria 1+ /hpf (NONE) H 05/06/21 23:25 Urine Mucus 2+ /hpf 05/06/21 23:25 EKG 1: My Interpretation: Normal sinus rhythm with a heart rate of 64/min. Normal ST Ts. Normal KS interval and QRS duration EKG computer-generated impression: Chest X-Ray 05/06/21 22:55 IMPRESSION: Mild cardiomegaly. Minimal atelectasis or scar in the left lung base. Other findings detailed above. Head CT 05/06/21 22:55 IMPRESSION: No acute findings. Slight chronic ischemic changes. A&P Assessment and plan (1) Chest pain: The etiology of the chest pain is no clear. In view of her multiple risk factors for coronary artery disease and elevated troponin T, underlying coronary artery disease/acute coronary syndrome causing the pain is a consideration. Her EKG is unremarkable. The echocardiogram is pending. Status: Acute Qualifiers: Chest pain type: unspecified Qualified Code(s): R07.9 - Chest pain, unspecified (2) SVT (supraventricular tachycardia): Patient was on metoprolol. At this point, it may be appropriate to keep her on the Cardizem 30 mg p.o. every 8 hours. Since she has been on the metoprolol long time, I may gradually taperher off the metoprolol. We will cut back on the dose to 25 mg p.o. twice daily Status: Acute (3) Elevated troponin: Could be part of the acute coronary syndrome versus type II [place]. We will continue the Lovenox , aspirin and low-dose beta-tatiana. Status: Acute (4) Statin intolerance: May continue on the dietary modifications. Status: Acute (5) Dyslipidemia: Latest lipid profile is not known. We may go ahead and do one on the blood in the lab Status: Acute (6) Benign essential HTN: The blood pressure seems to be fairly under control. May continue on the current medications. Status: Acute (7) Diet-controlled diabetes mellitus: Continue on the dietary modifications. Status: Acute Plan Other problems are Chronic headache, possibly from allergies Patient may be kept on subcu Lovenox, p.o. aspirin, a lower dose of metoprolol and Cardizem Based on the patient's clinical progress and the results of the above test results, further recommendations will be made. 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
--- NOTE | 2021-05-07 11:06 | USCV_ITS ---
Armando Xin Age: 56 Gender: F : 1965 Exam Date: 05/07/2021 15:51 Ordering Phys: Technologist: Ankur Moore Exam Location: [facility] – [place] Indication: CHEST PAIN BP: 137 / 67 HR: 67 Rhythm: Sinus Technical Quality: Adequate MEASUREMENTS (Male / Female) Normal Values 2D ECHO LV Diastolic Diameter PLAX 3.9 cm 4.2 - 5.9 / 3.9 - 5.3 cm LV Systolic Diameter PLAX 2.6 cm IVS Diastolic Thickness 1.1 cm 0.6 - 1.0 / 0.6 - 0.9 cm IVS Systolic Thickness 1.7 cm LVPW Diastolic Thickness 1.1 cm 0.6 - 1.0 / 0.6 - 0.9 cm LVPW Systolic Thickness 1.7 cm LVOT Diameter 2.1 cm LV Ejection Fraction 2D Teich 61.3 % LV Ejection Fraction MOD 2C 76.2 % LV Ejection Fraction 2C AL 76.3 % LA Diameter 3.8 cm Aorta at Sinotubular Diameter 2.4 cm M-MODE Aortic Annulus Diameter 2.9 cm LA Ao Ratio MM 1.4 MV E Point Septal Separation 0.8 cm DOPPLER AV Peak Velocity 139.0 cm/s LVOT Peak Velocity 89.0 cm/s AV Area Cont Eq vti 3.3 cm squared AV Area Cont Eq pk 2.1 cm squared MV Area PHT 5.0 cm squared Mitral E to A Ratio 1.1 MV E' Velocity 44.5 cm/s Mitral E to MV E' Ratio 7.8 Mitral E to LV E' Lateral Ratio 7.0 Mitral E to LV E' Septal Ratio 8.7 TR Peak Velocity 166.7 cm/s TR Peak Gradient 11.1 mmHg TV Peak E Velocity 77.0 cm/s Right Atrial Pressure 3.0 mmHg Pulmonary Artery Systolic Pressu 14.1 mmHg FINDINGS Left Ventricle Normal left ventricular size and systolic function, EF 70 %. No regional wall motion abnormalities. Right Ventricle The right ventricle is normal in size and function. Right Atrium The right atrium is normal in size. Left Atrium The left atrium is normal in size. Mitral Valve Trace mitral valve regurgitation. Aortic Valve Trace to mild aortic valve regurgitation. Tricuspid Valve Trace tricuspid valve regurgitation. Pulmonic Valve Pulmonic valve not well visualized. Pericardium Normal pericardium without effusion. Aorta Normal ascending aorta dimension. CONCLUSIONS Normal left ventricular size and systolic function, EF 70 %. No regional wall motion abnormalities. Trace to mild aortic valve regurgitation. Trace of mitral and tricuspid mitral valve regurgitation. There is no pericardial effusion. There are no intracardiac masses. No previous study is available for comparison. Dr Cecilio Walker MD FACC (Electronically Signed) Final Date: 07 May 2021 17:53 S
--- NOTE | 2021-05-07 11:27 | PC.NURSE ---
Report received from ELIZABETH Persaud. Patient arrived to [facility] at 11:25am. Patient is alert and oriented. Complaints regarding right wrist IV. IV has been removed, New IV placed in left AC. Otherwise patient says she is feeling better. Physician notified of 9am medications that were not given, Aspirin and Lovenox. Physician orders to give those medications now.
--- NOTE | 2021-05-07 11:39 | PC.NURSE ---
performed accu check for glucose and is 137
[2021-05-07] MEDS: enoxaparin 100 mg/mL Syringe 90 MG SUBCUT ×2 (11:47→21:28)
[2021-05-07] MEDS: pantoprazole DR 40 mg Tablet PO ×2 (11:50→17:07)
[2021-05-07] MEDS: aspirin 325 mg EC Tablet PO (11:50)
[2021-05-07] MEDS: dilTIAZem 30 mg Tablet PO ×2 (11:50→21:29)
[2021-05-07 12:16] LABS: Glucose Point of Care 137 mg/dL (70-110)
[2021-05-07] MEDS: acetaminophen 325 mg Tablet 650 MG PO ×2 (13:08→21:33)
[2021-05-07 13:09] LABS: Basophils # 0.1 10^3/uL (0.0-0.1); Basophils % 0.8 %; Eosinophils # 0.1 10^3/uL (0.0-0.8); Eosinophils % 1.5 %; Hematocrit 41.5 % (37.0-47.0); Hemoglobin 13.5 g/dL (11.5-15.3); Lymphocytes # 2.8 10^3/uL (0.8-4.8); Lymphocytes % 46.2 %; Mean Corpuscular HGB Conc 32.5 g/dL (30.0-36.0); Mean Corpuscular Hemoglobin 29.5 pg (28.0-34.0); Mean Corpuscular Volume 90.6 fl (81-99); Mean Platelet Volume 10.8 fL (7.4-10.4); Monocytes # 0.6 10^3/uL (0.2-0.9); Monocytes % 10.6 %; Neutrophils # 2.46 10^3/uL (1.8-7.7); Neutrophils % 40.7 %; Nucleated Red Blood Cells % 0 %; Platelet Count 198 10^3/cmm (130-400); Red Blood Count 4.58 10^6/uL (4.1-5.3)
[2021-05-07] MEDS: sodium chloride 0.9% 1,000 ML 75 ML IV (13:11)
[2021-05-07 13:29] LABS: Anion Gap 14.7 (5-19); Blood Urea Nitrogen 14 mg/dL (6-20); Calcium 9.1 mg/dL (8.5-10.5); Carbon Dioxide 25 mmol/L (22-29); Chloride 103 mmol/L (98-107); Glomerular Filtration Rate 86.6 mL/min (90-130); Glucose 160 mg/dL (65-115); Osmolality Calculated 292 mOsm/kg (285-295); Potassium 3.7 mmol/L (3.5-5.1); Sodium 139 mmol/L (136-145)
--- NOTE | 2021-05-07 16:24 | PC.NURSE ---
performed accu check and glucose is 113.
[2021-05-07 16:31] LABS: Glucose Point of Care 113 mg/dL (70-110)
--- NOTE | 2021-05-07 18:55 | PC.NURSE ---
Physician Orders Lexiscan Mibi Stress test for tomorrow.
[2021-05-07] MEDS: metoprolol tartrate 25 mg Tablet PO (21:29)
[2021-05-07] MEDS: loratadine 10 mg Tablet PO (21:29)
[2021-05-08] MEDS: sodium chloride 0.9% 1,000 ML 75 ML IV (02:40)
[2021-05-08 03:34] LABS: Basophils % 0.6 %; Eosinophils # 0.1 10^3/uL (0.0-0.8); Eosinophils % 1.4 %; Hemoglobin 13.1 g/dL (11.5-15.3); Lymphocytes # 3.6 10^3/uL (0.8-4.8); Lymphocytes % 51.2 %; Mean Corpuscular HGB Conc 32.8 g/dL (30.0-36.0); Mean Corpuscular Hemoglobin 29.8 pg (28.0-34.0); Mean Corpuscular Volume 90.9 fl (81-99); Mean Platelet Volume 10.4 fL (7.4-10.4); Monocytes # 0.6 10^3/uL (0.2-0.9); Monocytes % 9.2 %; Neutrophils % 37.5 %; Nucleated Red Blood Cells % 0 %; Platelet Count 180 10^3/cmm (130-400); Red Cell Distribution Width 11.8 % (12.1-15.1)
[2021-05-08 03:53] LABS: Chol HDL Ratio 3.74 mg/dL (0.0-4.40); Cholesterol 187 mg/dL (0-200); HDL Cholesterol 50 mg/dL (60-100); LDL Cholesterol Calculated 83 mg/dL (50-129); LDL HDL Ratio 1.66 RATIO (0.00-3.22); Triglycerides 271 mg/dL (0-150)
[2021-05-08 03:57] VITALS: BP 146/80; PULSE 63; RESP 19; TEMP 36.6; O2SAT 96
[2021-05-08 03:59] LABS: Albumin Level 3.7 g/dL (3.5-5.2); Alkaline Phosphatase 72 IU/L (35-105); Aspartate Amino Transferase 21 U/L (0-32); Blood Urea Nitrogen 14 mg/dL (6-20); Calcium 8.8 mg/dL (8.5-10.5); Carbon Dioxide 24 mmol/L (22-29); Chloride 107 mmol/L (98-107); Globulin 2.3 g/dL (1.3-4.6); Glomerular Filtration Rate 86.6 mL/min (90-130); Glucose 109 mg/dL (65-115); Magnesium 2.1 mg/dL (1.7-2.3); Osmolality Calculated 293 mOsm/kg (285-295); Sodium 141 mmol/L (136-145); Total Bilirubin 0.4 mg/dL (0.15-1.2)
[2021-05-08] MEDS: dilTIAZem 30 mg Tablet PO ×2 (04:07→13:10)
[2021-05-08 04:13] LABS: Alanine Aminotransferase 23 U/L (0-33)
[2021-05-08 05:25] VITALS: PULSE 69
--- NOTE | 2021-05-08 07:00 | ECG_ITS ---
[facility] Test Date: 2021-05-08 Pat Name: Xin Roberts Department: Room: 102 Gender: Female Ramp Boss: Bertha Comer : 1965 Requested By: Cecilio Walker Order Number: [id number] Krystal MD: Cecilio Walker M.D. Interpretive Statements NAME OF STUDY: LEXISCAN SESTAMIBI STRESS TEST INDICATION: Chest Pain, PROCEDURE: At the baseline, the EKG revealed normal sinus rhythm with a poor R wave progression. Normal ST Ts. The baseline blood pressure was 150/83 mm Hg with a heart rate of 65 beats/min. Lexiscan was infused over a period of 20 seconds. A total of 0.4 milligrams of Lexiscan was infused. The stress phase was continued for a total of 5 minutes. Heart rate at the end of the stress phase was 79 with a blood pressure 115/71. The EKG at the peak infusion revealed some nonspecific ST changes. Sestamibi was injected 20 seconds after the Lexiscan infusion. Blood pressure at the end of the recovery phase was 118/70 with a heart rate of 84 per minute. CONCLUSION: 1. Nonspecific EKG changes with the LexiScan infusion 2. No LexiScan induced chest pain or cardiac arrhythmia 3. Normal blood pressure and heart rate response 4. Sestamibi/sestamibi perfusion scan pending; see separate report. Electronically Signed On 05-11-2021 14:14:03 CDT by Cecilio Walker M.D. [id number]
[2021-05-08 07:52] VITALS: BP 115/72; PULSE 82
[2021-05-08] MEDS: regadenoson 0.4 Mg/5 ml Syringe IVP (07:52)
--- NOTE | 2021-05-08 08:38 | PC.CHAP ---
Pastoral Care Encounter/Spiritual Assessment Type of Contact [] Declined tapper balance wheel screw hole visit [] Patient/Family/Request visit [] Outpatient visit [] Follow-up visit [] Physician referral [] Code/Alert [x] Routine visit [] Staff referral [] Actively dying [] Patient sleeping [] Family support [] [] Out of room [] Palliative care [] [] Receiving care in room [] Pre-surgical visit [] Trauma [] Long length of stay [] ICU visit [] Other: Relational/Emotional Strength [x] Patient feels connected with others/family/visitors/staff [] Distress [] Loneliness/isolation [] Abandonment Spirituality of Patient [] Person of Diamond [] Attends Hindu of their Diamond [] Believes in Prayer [] Reads Bible or Oriental Orthodox materials [] There are Spiritual issues to be addressed Mixer [place] Interventions [] Prayer [x] Active listening [x] Non-anxious presence [x] Spiritual/emotional support [] Crisis/trauma care [] Spiritual counseling [] Bereavement support [] Provided bereavement packet [] Provided Bible/devotional materials [] Provided toy/stuffed animal, coloring book to patient or family member [] Provided Communion [] Anointing/[place] [] Salvation [] Completed spiritual assessment [] Other: Impact on Illness or Injury [] Angry [] Fearful [] Anxious [] Often cries [] Exhaustion [] Unable to work [] Unable to attend christian [] Unable to walk/stand [] Unable to read [] Unable to drive [] Unable to eat/drink [] Unable to sleep [] Unable to be with family [] Patient intubated [] Other: Summary Pt was not in the room but her was sitting in a chair. He said the Pt had been taken for a stress test and he is waiting. Pt has had heart issue for 20 years but has been regulated well with medication. However, the meds did not seem to be working and Pt ended up in ER on Friday night. They are thinking the meds will need to be adjusted. Both hope they will be able to go home this evening. Time spent with patient 10m
[2021-05-08 09:28] VITALS: BP 141/79; PULSE 69; RESP 16; TEMP 36.6; O2SAT 96
[2021-05-08] MEDS: enoxaparin 100 mg/mL Syringe 90 MG SUBCUT (09:31)
[2021-05-08] MEDS: pantoprazole DR 40 mg Tablet PO (09:31)
[2021-05-08] MEDS: aspirin 325 mg EC Tablet PO (09:31)
[2021-05-08] MEDS: metoprolol tartrate 25 mg Tablet PO (09:31)
--- NOTE | 2021-05-08 13:06 | P.PN_ITS ---
Subjective Subjective: Patient is feeling okay. She has not had any chest pain or palpitations. Telemetry shows normal sinus rhythm. She has been tolerating the medication so far well. She was placed on diltiazem 30 mg p.o. every 8 hours. She was given 25 mg of metoprolol this morning. The heart rate stays in the 70s. Medications: Medication Review Details: Current Medications Acetaminophen (Acetaminophen 325 Mg Tablet) 650 mg PO Q6H PRN PRN Reason: Mild/Mod Pain Or Temp >/= 101 Last Admin: 05/07/21 21:33 Dose: 650 mg Documented by: Albuterol/Ipratropium (Ipratropium-Albuterol 3 Ml Neb) 3 ml INHALATION Q6H.RESPIRATORY PRN PRN Reason: SHORTNESS OF BREATH Aminophylline (Aminophylline 25 Mg/Ml Sdv 10 Ml) 25 mg IVP Q2M PRN PRN Reason: see dose instructions Stop: 05/09/21 07:34 Aspirin (Aspirin 325 Mg Ec Tablet) 325 mg PO DAILY [facility] Last Admin: 05/08/21 09:31 Dose: 325 mg Documented by: Diltiazem HCl (Diltiazem 30 Mg Tablet) 30 mg PO Q8H [facility] Last Admin: 05/08/21 04:07 Dose: 30 mg Documented by: Enoxaparin Sodium (Enoxaparin 100 Mg/Ml Syringe) 90 mg SUBCUT Q12H [facility] Last Admin: 05/08/21 09:31 Dose: 90 mg Documented by: Loratadine (Loratadine 10 Mg Tablet) 10 mg PO BEDTIME [facility] Last Admin: 05/07/21 21:29 Dose: 10 mg Documented by: Metoprolol Tartrate (Metoprolol Tartrate 25 Mg Tablet) 25 mg PO BID@0900,2100 [facility] Last Admin: 05/08/21 09:31 Dose: 25 mg Documented by: Nitroglycerin (Nitroglycerin 0.4 Mg Sublingual Tablet) 0.4 mg SUBLINGUAL Q5M PRN PRN Reason: CHEST PAIN Stop: 05/09/21 07:34 Ondansetron HCl (Ondansetron 2 Mg/Ml Sdv 2 Ml) 4 mg IVP Q6H PRN PRN Reason: vomiting, or N/V if npo Ondansetron HCl (Ondansetron 2 Mg/Ml Sdv 2 Ml) 4 mg IVP Q2M PRN PRN Reason: NAUSEA Pantoprazole Sodium (Pantoprazole Dr 40 Mg Tablet) 40 mg PO BID SHEE[facility] Last Admin: 05/08/21 09:31 Dose: 40 mg Documented by: Vitals/I&O/Wt Last Vital Signs Temp 97.8 F 05/08/21 09:28 Pulse 69 05/08/21 09:28 Resp 16 05/08/21 09:28 BP 141/79 05/08/21 09:28 Pulse Ox 96 05/08/21 09:28 05/07/21 05/08/21 05/08/21 22:59 06:59 14:59 Intake Total 310 / 930 1100 / 2030 Balance 310 / 930 1100 / 2030 Weight last 48 hrs Weight 200 lb Physical Exam Narrative: GENERAL: The patient is alert and oriented times three. Not in any acute distress. Overweight HEENT: No significant pallor, icterus or lymphadenopathy. The pupils are reactant to light. Oral cavity: There are no mucous membrane lesions. NECK: Trachea appears to be central. No masses noted. No JVD or thyromegaly appreciated. No carotid bruit. RESPIRATORY: Chest is symmetrical. No intercostals muscle retraction or any accessory muscle activation. There is no chest wall tenderness. Breath sounds are heard bilaterally. No rales or rhonchi heard. No evidence of any consolidation. BREASTS: Deferred. HEART: No palpable precordial events. S1 and S2 are normal. No S3 or S4 heard. No pericardial rub or any click heard. ABDOMEN: No vessel pulsations or distention. No tenderness. No organomegaly appreciated. No abdominal bruit. Bowel sounds are normally heard. : Deferred. RECTAL: Deferred. LYMPHATIC: No lymphadenopathy noted in the neck or groin. EXTREMITIES: No edema or cyanosis. No clubbing. MUSCULOSKELETAL: No acute joint deformities or swelling SKIN: There are no significant scars or skin rash noted. NEUROPSYCHIATRIC: The patient is alert and oriented x3. Appears to be in a good mood. The higher functions are grossly within normal limits. No tremors or rigidity noted. Data : 05/08/21 03:21 05/08/21 03:21 Other Labs: Laboratory Last Values WBC 7.0 10^3/uL (4.0-10.0) 05/08/21 03:21 RBC 4.40 10^6/uL (4.1-5.3) 05/08/21 03:21 Hgb 13.1 g/dL (11.5-15.3) 05/08/21 03:21 Hct 40.0 % (37.0-47.0) 05/08/21 03:21 MCV 90.9 fl (81-99) 05/08/21 03:21 MCH 29.8 pg (28.0-34.0) 05/08/21 03:21 MCHC 32.8 g/dL (30.0-36.0) 05/08/21 03:21 RDW 11.8 % (12.1-15.1) L 05/08/21 03:21 Plt Count 180 10^3/cmm (130-400) 05/08/21 03:21 MPV 10.4 fL (7.4-10.4) 05/08/21 03:21 Neut % (Auto) 37.5 % 05/08/21 03:21 Lymph % (Auto) 51.2 % 05/08/21 03:21 Floyd % (Auto) 9.2 % 05/08/21 03:21 Eos % (Auto) 1.4 % 05/08/21 03:21 Baso % (Auto) 0.6 % 05/08/21 03: Neut # (Auto) 2.60 10^3/uL (1.8-7.7) 05/08/21 03: Lymph # (Auto) 3.6 10^3/uL (0.8-4.8) 05/08/21 03:21 Floyd # (Auto) 0.6 10^3/uL (0.2-0.9) 05/08/21 03:21 Eos # (Auto) 0.1 10^3/uL (0.0-0.8) 05/08/21 03:21 Baso # (Auto) 0.0 10^3/uL (0.0-0.1) 05/08/21 03:21 Nucleated RBC % (auto) 0 % 05/08/21 03:21 Nucleated RBCs # 0.0 /100WBC 05/08/21 03:21 Sodium 141 mmol/L (136-145) 05/08/21 03:21 Potassium 4.0 mmol/L (3.5-5.1) 05/08/21 03:21 Chloride 107 mmol/L (98-107) 05/08/21 03:21 Carbon Dioxide 24 mmol/L (22-29) 05/08/21 03:21 Anion Gap 14.0 (5-19) 05/08/21 03:21 BUN 14 mg/dL (6-20) 05/08/21 03:21 Creatinine 0.7 mg/dL (0.5-0.9) 05/08/21 03:21 GFR Calculation 86.6 mL/min (90-130) L 05/08/21 03:21 Glucose 109 mg/dL (65-115) 05/08/21 03:21 POC Glucose 113 mg/dL (70-110) H 05/07/21 16:21 Calculated Osmolality 293 mOsm/kg (285-295) 05/08/21 03:21 Calcium 8.8 mg/dL (8.5-10.5) 05/08/21 03:21 Magnesium 2.1 mg/dL (1.7-2.3) 05/08/21 03:21 Total Bilirubin 0.4 mg/dL (0.15-1.2) 05/08/21 03:21 AST 21 U/L (0-32) 05/08/21 03:21 ALT 23 U/L (0-33) 05/08/21 03:21 Alkaline Phosphatase 72 IU/L (35-105) 05/08/21 03:21 Troponin T Baseline 32 ng/L (0-10) H 05/06/21 23:10 Troponin T 120 Minute 63.75 ng/L (0-10) H 05/07/21 01:10 Delta Troponin T 31.75 ABS# (0-10) H* 05/07/21 01:10 Troponin T Hi Sens 6Hr 80.75 ng/L (0-10) H 05/07/21 05:10 Troponin T Hi Sens 6Hr Delta 48.75 ng/L (0-12) H* 05/07/21 05:10 Total Protein 6.0 g/dL (6.6-8.7) L 05/08/21 03:21 Albumin 3.7 g/dL (3.5-5.2) 05/08/21 03:21 Globulin 2.3 g/dL (1.3-4.6) 05/08/21 03:21 Triglycerides 271 mg/dL (0-150) H 05/08/21 03:21 Cholesterol 187 mg/dL (0-200) 05/08/21 03:21 LDL Cholesterol, Calc 83 mg/dL (50-129) 05/08/21 03:21 HDL Cholesterol 50 mg/dL (60-100) L 05/08/21 03: LDL/HDL Ratio 1.66 RATIO (0.00-3.22) 05/08/21 03: Cholesterol/HDL Ratio 3.74 mg/dL (0.0-4.40) 05/08/21 03: TSH 1.22 uIU/mL (0.27-4.20) 05/06/21 23:10 Urine Color Yellow (Yellow) 05/06/21 23:25 Urine Appearance Clear (CLEAR) 05/06/21 23:25 Urine pH 7 (5-7) 05/06/21 23:25 Ur Specific Hasty 1.010 (1.005-1.030) 05/06/21 23:25 Urine Protein Neg (Negative) 05/06/21 23:25 Urine Glucose (UA) Norm (Normal) 05/06/21 23:25 Urine Ketones 1+ (Negative) H 05/06/21 23:25 Urine Blood Neg (Negative) 05/06/21 23:25 Urine Nitrate Negative (Negative) 05/06/21 23:25 Urine Bilirubin Neg (Negative) 05/06/21 23:25 Urine Urobilinogen Norm mg/dL (Negative) 05/06/21 23:25 Ur Leukocyte Esterase Trace (Negative) H 05/06/21 23:25 Urine RBC 0-4 /hpf (0-2) H 05/06/21 23:25 Urine WBC 0-4 /hpf (0-5) H 05/06/21 23:25 Ur Squamous Epith Cells 5-10 /hpf (0-5) H 05/06/21 23:25 Amorphous Sediment Not Reportable 05/06/21 23:25 Urine Bacteria 1+ /hpf (NONE) H 05/06/21 23:25 Urine Mucus 2+ /hpf 05/06/21 23:25 Other Imaging: My impression: Myocardial perfusion imaging was suggestive of low probability for coronary ischemia A&P Assessment and plan (1) Chest pain: Most likely related to the arrhythmia. Currently she is at symptomatic. In the absence of any ischemia, based on perfusion scan, she may not require any further investigation at this time. Status: Acute Qualifiers: Chest pain type: unspecified Qualified Code(s): R07.9 - Chest pain, unspecified (2) SVT (supraventricular tachycardia): Patient may be started on diltiazem LA 120 mg p.o. daily. She also may be c ontinued on metoprolol 25 mg daily. May take the metoprolol in the morning of the diltiazem in the evening Status: Acute (3) Elevated troponin: Most likely type II NH Status: Acute (4) Statin intolerance: May continue on the dietary modifications. Status: Acute (5) Dyslipidemia: Latest lipid profile is not known. We may go ahead and do one on the blood in the lab Status: Acute (6) Benign essential HTN: The blood pressure seems to be fairly under control. May continue on the current medications. Status: Acute (7) Diet-controlled diabetes mellitus: Continue on the dietary modifications. Status: Acute Plan Discussed with the patient about the implications of the myocardial perfusion imaging. Since the patient has no chest pain or any specific symptoms at this time, she may not require any further investigations at this point. May continue on the diltiazem and the lower dose of metoprolol. She need to be [facility] week by the nurse practitioner. She will keep her follow-up appointments with the event security officer in [facility] Medical Necessity Statement*: Possible discharge home today Coding Level of Care Code Acute Residential Sales for Laura Harmon Diagnoses Chest pain R07.9 Chest pain type: unspecified SVT (supraventricular tachycardia) I47.1 Elevated troponin R77.8 Statin intolerance Z78.9 Dyslipidemia E78.5 Benign essential HTN I10 Diet-controlled diabetes mellitus E11.9
--- NOTE | 2021-05-08 13:21 | PM.DCS ---
Discharge Providers Date of Admission: 05/07/21 11:06 Date of Discharge: May 08, 2021 Attending Provider at Admission: Dank Dial MD Attending Provider at Discharge: Mohinder Parham MD Primary Care Provider: PATRICK Booker Diagnoses at Discharge Discharge Diagnosis (1) Chest pain: Status: Acute Qualifiers: Chest pain type: unspecified Qualified Code(s): R07.9 - Chest pain, unspecified (2) SVT (supraventricular tachycardia): Status: Acute (3) Elevated troponin: Status: Acute (4) Statin intolerance: Status: Acute (5) Dyslipidemia: Status: Acute (6) Benign essential HTN: Status: Acute (7) Diet-controlled diabetes mellitus: Status: Acute Reason for Visit Reason for Visit: HEADACHE/CHEST DISCOMFORT Hospital Course Hospital Course Xin is a 56-year-old white female who presented with head discomfort, chest discomfort, and was found to be in SVT. She had a past history of SVT quite some time ago in the past. In the emergency department she received some metoprolol IV as well as Cardizem IV and subsequently converted. Troponin was significantly elevated, and she had a past history of some exertional chest discomfort so she was fully anticoagulated, placed in observation, and received a cardiology consultation. Aspirin was continued. Cholesterol medicine was not given as she has significant side effects from statin. The following day nuclear stress test was performed which did not show any reversible ischemia. Echocardiogram has been completed which demonstrated preserved ejection fraction, only trace mitral and tricuspid as well as aortic valve regurgitation and no wall motion abnormalities. She had no recurrence of arrhythmia. TSH, electrolytes were all normal. It was thought she could discharge home, with follow-up with cardiology as well as her primary care provider. Diltiazem 120 mg extended release daily will be initiated in addition to her Toprol-XL 50 mg daily. Her troponin elevation was thought to be secondary to her SVT. Physical Exam Narrative: General exam no distress Neck is supple no lymphadenopathy thyromegaly Cardiovascular regular rate and rhythm without murmur Lungs clear Abdomen is soft, positive bowel sounds Extremities no cyanosis, or edema Discharge Data Studies Completed and Pending Completed Studies During Hospitalization Category Date Time Status CT head wo con* [id number] Urgent Cat Scan 05/06/21 22:55 Completed Cardiac Stress Test MIBI [Sestamibi Stress Test Request Exams 05/08/21 07:00 Draft ] Routine XR chest 1V portable [id number] Stat Exams 05/06/21 22:55 Completed NM emil perf SPECT r/s* [id number] Routine Nuc Med 05/08/21 18:55 Completed US echo complete [CV. echo complete* [id number]] Routine Ultrasound 05/07/21 11:06 Completed Radiology Impressions Chest X-Ray 05/06/21 22:55 IMPRESSION: Mild cardiomegaly. Minimal atelectasis or scar in the left lung base. Other findings detailed above. Head CT 05/06/21 22:55 IMPRESSION: No acute findings. Slight chronic ischemic changes. Laboratory Results WBC 7.0 10^3/uL (4.0-10.0) 05/08/21 03: RBC 4.40 10^6/uL (4.1-5.3) 05/08/21 03:21 Hgb 13.1 g/dL (11.5-15.3) 05/08/21 03:21 Hct 40.0 % (37.0-47.0) 05/08/21 03:21 MCV 90.9 fl (81-99) 05/08/21 03:21 MCH 29.8 pg (28.0-34.0) 05/08/21 03:21 MCHC 32.8 g/dL (30.0-36.0) 05/08/21 03:21 RDW 11.8 % (12.1-15.1) L 05/08/21 03:21 Plt Count 180 10^3/cmm (130-400) 05/08/21 03:21 MPV 10.4 fL (7.4-10.4) 05/08/21 03:21 Neut % (Auto) 37.5 % 05/08/21 03:21 Lymph % (Auto) 51.2 % 05/08/21 03:21 [place]er % (Auto) 9.2 % 05/08/21 03:21 Eos % (Auto) 1.4 % 05/08/21 03:21 Baso % (Auto) 0.6 % 05/08/21 03:21 Neut # (Auto) 2.60 10^3/uL (1.8-7.7) 05/08/21 03:21 Lymph # (Auto) 3.6 10^3/uL (0.8-4.8) 05/08/21 03:21 Hooker # (Auto) 0.6 10^3/uL (0.2-0.9) 05/08/21 03:21 Eos # (Auto) 0.1 10^3/uL (0.0-0.8) 05/08/21 03:21 Baso # (Auto) 0.0 10^3/uL (0.0-0.1) 05/08/21 03:21 Nucleated RBC % (auto) 0 % 05/08/21 03:21 Nucleated RBCs # 0.0 /100WBC 05/08/21 03:21 Sodium 141 mmol/L (136-145) 05/08/21 03:21 Potassium 4.0 mmol/L (3.5-5.1) 05/08/21 03:21 Chloride 107 mmol/L (98-107) 05/08/21 03:21 Carbon Dioxide 24 mmol/L (22-29) 05/08/21 03:21 Anion Gap 14.0 (5-19) 05/08/21 03:21 BUN 14 mg/dL (6-20) 05/08/21 03:21 Creatinine 0.7 mg/dL (0.5-0.9) 05/08/21 03:21 GFR Calculation 86.6 mL/min (90-130) L 05/08/21 03:21 Glucose 109 mg/dL (65-115) 05/08/21 03:21 POC Glucose 113 mg/dL (70-110) H 05/07/21 16:21 Calculated Osmolality 293 mOsm/kg (285-295) 05/08/21 03:21 Calcium 8.8 mg/dL (8.5-10.5) 05/08/21 03:21 Magnesium 2.1 mg/dL (1.7-2.3) 05/08/21 03:21 Total Bilirubin 0.4 mg/dL (0.15-1.2) 05/08/21 03:21 AST 21 U/L (0-32) 05/08/21 03:21 ALT 23 U/L (0-33) 05/08/21 03:21 Alkaline Phosphatase 72 IU/L (35-105) 05/08/21 03:21 Troponin T Baseline 32 ng/L (0-10) H 05/06/21 23:10 Troponin T 120 Minute 63.75 ng/L (0-10) H 05/07/21 01:10 Delta Troponin T 31.75 ABS# (0-10) H* 05/07/21 01:10 Troponin T Hi Sens 6Hr 80.75 ng/L (0-10) H 05/07/21 05:10 Troponin T Hi Sens 6Hr Delta 48.75 ng/L (0-12) H* 05/07/21 05:10 Total Protein 6.0 g/dL (6.6-8.7) L 05/08/21 03:21 Albumin 3.7 g/dL (3.5-5.2) 05/08/21 03:21 Globulin 2.3 g/dL (1.3-4.6) 05/08/21 03:21 Triglycerides 271 mg/dL (0-150) H 05/08/21 03:21 Cholesterol 187 mg/dL (0-200) 05/08/21 03:21 LDL Cholesterol, Calc 83 mg/dL (50-129) 05/08/21 03:21 HDL Cholesterol 50 mg/dL (60-100) L 05/08/21 03:21 LDL/HDL Ratio 1.66 RATIO (0.00-3.22) 05/08/21 03:21 Cholesterol/HDL Ratio 3.74 mg/dL (0.0-4.40) 05/08/21 03:21 TSH 1.22 uIU/mL (0.27-4.20) 05/06/21 23:10 Urine Color Yellow (Yellow) 05/06/21 23:25 Urine Appearance Clear (CLEAR) 05/06/21 23:25 Urine pH 7 (5-7) 05/06/21 23:25 Ur Specific Hallie 1.010 (1.005-1.030) 05/06/21 23:25 Urine Protein Neg (Negative) 05/06/21 23:25 Urine Glucose (UA) Norm (Normal) 05/06/21 23:25 Urine Ketones 1+ (Negative) H 05/06/21 23:25 Urine Blood Neg (Negative) 05/06/21 23:25 Urine Nitrate Negative (Negative) 05/06/21 23:25 Urine Bilirubin Neg (Negative) 05/06/21 23:25 Urine Urobilinogen Norm mg/dL (Negative) 05/06/21 23:25 Ur Leukocyte Esterase Trace (Negative) H 05/06/21 23:25 Urine RBC 0-4 /hpf (0-2) H 05/06/21 23:25 Urine WBC 0-4 /hpf (0-5) H 05/06/21 23:25 Ur Squamous Epith Cells 5-10 /hpf (0-5) H 05/06/21 23:25 Amorphous Sediment Not Reportable 05/06/21 23:25 Urine Bacteria 1+ /hpf (NONE) H 05/06/21 23:25 Urine Mucus 2+ /hpf 05/06/21 23:25 Vitals Last Vital Signs Temp 97.8 F 05/08/21 09:28 Pulse 69 05/08/21 09:28 Resp 16 05/08/21 09:28 BP 141/79 05/08/21 09:28 Pulse Ox 96 05/08/21 09:28 Discharge Plan Discharge Patient Disposition: Home Condition: Stable Prescriptions: New diltiazem HCl 120 mg capsule,extended release 24hr 120 mg PO DAILY Qty: 30 0RF Continued nystatin 100,000 unit/mL suspension 5 ml PO QID 0RF Rx Instructions: swish and swallow metoprolol succinate 50 mg tablet extended release 24 hr 50 mg PO BEDTIME 0RF omeprazole 40 mg capsule,delayed release(DR/EC) 40 mg PO QAM 0RF Aspir-81 81 mg Tablet,Delayed Release (Dr/Ec) 81 mg PO BEDTIME 0RF famotidine 20 mg tablet 40 mg PO BEDTIME 0RF albuterol sulfate 90 mcg/actuation HFA aerosol inhaler 2 puff INHALATION Q6H PRN (Reason: Shortness Of Breath) 0RF Vitamin B-12 1 tab PO DAILY 0RF Vitamin B-6 1 tab PO DAILY 0RF Vitamin D3 1 cap PO DAILY 0RF vitamin E 1 tab PO DAILY 0RF Discharge Orders: Discharge Order (Routine); Ordered 05/08/21 Ordered By: Mohinder Parham Referrals: Cecilio Walker MD [Physician] - 1 week (Okay to see Beverly Hunt 1 to 2 weeks) Corrie Ramirez FNP-C [Primary Care Provider] - 4-7 days Discharge Diet: Cardiac Discharge Activity: Increase activity as tolerated Patient Instructions: Diltiazem (By mouth) (Cardizem, Cardizem CD, Cardizem LA, Cardizem SR), Supraventricular Tachycardia (DC), Chest Pain (DC), Chest Pain Stoplight, Opioid Safety Activity Restrictions/Additional Instructions: Take all medicine as prescribed. Keep follow-up with primary care provider as well as cardiology. Discharge Attestations Time Spent in Discharge Care*: greater than 30 min Quality Metrics Clinical Quality Measures [ No reported AMI, CVA or VTE this stay] Coding Level of Care Code Acute Chg FW DC note Diagnoses Chest pain R07.9 Chest pain type: unspecified SVT (supraventricular tachycardia) I47.1 Elevated troponin R77.8 Statin intolerance Z78.9 Dyslipidemia E78.5 Benign essential HTN I10 Diet-controlled diabetes mellitus E11.9
[2021-05-08 14:05] VITALS: BP 164/72; PULSE 69; RESP 14; O2SAT 94
[2021-05-08 15:08] VITALS: BP 164/72; PULSE 69; RESP 14; O2SAT 94
--- NOTE | 2021-05-08 15:41 | PC.NURSE ---
Discharge Note Patient discharged to home via wheelchair accompanied by spouse. Discharge instructions reviewed with patient and/or sales representative supervisor. Mobile pharmacy medications and/or prescriptions provided. Belongings/home medications returned.
--- NOTE | 2021-05-08 18:55 | NMCV_ITS ---
NM emil perf SPECT r/s* [id number] Xin Roberts Age: 56 Gender: F : 1965 Exam Date: 05/08/2021 07:13 Ordering Phys: Cecilio Walker MD ([email or web address]) Technologist: LESLIE Osorio Exam Location: [facility] Indications: CHEST PAIN STRESS TEST Please see separate stress test report in [facility] for full findings IMAGE PROTOCOL Rest/Stress 1 Lexiscan Day Radiopharmaceutical Dose (mCi) Administration Site Administered by Rest: Tc-99m 10.7 IV LESLIE Pierce Sestamibi Stress:Tc-99m 32.9 IV LESLIE Pierce Sestamibi Rest: 08-May-2021 60 Discovery 630 Stress: 08-May-2021 30 Discovery 630 0.4mg Lexiscan. Images obtained in supine and prone position. SPECT RESULTS Technical Quality: Excellent Raw Data Analysis: Normal Image Corrections: No attenuation or motion correction applied Summed Stress Score: 5 Summed Rest Score: 6 Summed Difference Score: 0 PERFUSION FINDINGS Moderate area of slightly decreased asymmetry was noted in the mid anterior, anterolateral, inferolateral and apical lateral regions. No significant reversibility was noted in these regions. FUNCTIONAL RESULTS (calculated via Gated SPECT) Stress Image LV EF (%): 83 Stress EDV (mL):86 TID: 1 Stress ESV (mL):15 FUNCTIONAL FINDINGS: Segmental wall motion analysis revealing no gross wall motion abnormalities IMPRESSIONS 1. Myocardial perfusion imaging revealing moderate area of slightly decreased persistent tracer uptake in the anterior, anterolateral, inferolateral and apical lateral regions, most likely represent attenuation artifacts. 2. Normal LV ejection fraction of 83% 3. LV wall motion analysis revealing no gross wall motion abnormalities. 4. Normal LV volume No significant coronary ischemia, based on the above findings Dr Cecilio Walker MD FACC (Electronically Signed) Final Date: 08 May 2021 12:42 S
== END 2021-05-08 15:30 | disposition home or self-care (01) ==
LOC: ER 05-07 06:37 → CSU 05-07 11:43
PROVIDERS: Nurse Practitioner Family; Admitting Provider Family Medicine; Emergency Provider Emergency Medicine; PCP Nurse Practitioner Family; Visit Provider Internal Medicine
DX: R07.89 Other chest pain (principal); I47.1 Supraventricular tachycardia; R77.8 Other specified abnormalities of plasma proteins; Z78.9 Other specified health status; E78.5 Hyperlipidemia, unspecified; I10 Essential (primary) hypertension; E11.9 Type 2 diabetes mellitus without complications
CPT/HCPCS: 36415; 36416; 70450; 71045; 78452; 80048; 80053; 80061; 81001; 82962; 83735; 84443; 84484; 85025; 93005; 93017; 93306; 96372; 96374; 96375; 99285; A9500; G0378; J1650; J2270; J2405; J2785; J3490; J7030; J7040